=== PATIENT | male | born 2000 | race Caucasian/White ===

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

== ENCOUNTER → 2019-10-06 | Outpatient (CLI) | payer BC ==
--- NOTE | 2019-10-09 10:08 | RAD ---
EXAM DESCRIPTION: Scoliosis Series: CR/DR/XR. CLINICAL HISTORY: 19 years Male, SCOLIOSIS DEFORMITY OF SPINE COMPARISON: Scoliosis series November 2016. TECHNIQUE: 4 views AP and lateral thoracic and lumbar spine standing. FINDINGS: Primary angle is in the lumbar spine including the T12 vertebra with the angle measuring 7.4 degrees levoscoliosis. T10-T12 compensatory curve is 2.1 degrees dextroscoliosis. No compression type vertebral body fractures or deformities. No spinal anomalies. IMPRESSION: Primary curvature is levoscoliosis in the lumbar spine, and not significantly changed from the prior study. Electronically signed by: Nils Queen MD 10/09/2019 10:06 AM CDT
== END ==
LOC: RAD 12:42
PROVIDERS: ATTEND Family Medicine
DX: M41.9 Scoliosis, unspecified (principal)